=== PATIENT | male | born 1980 | race Caucasian/White ===

== ENCOUNTER 2020-10-20 21:56 | Emergency (ER) | payer SELFPAY ==
--- NOTE | ~2020-10-20 | XR_ITS ---
EXAMINATION: XR chest 1V portable EXAM DATE: 10/20/2020 22:57 INDICATION: Loss of consciousness. Confusion TECHNIQUE: Portable AP frontal chest x-ray was obtained. Comparison is made to prior examination from 01/06/2014. FINDINGS: The lungs are clear. There are no pleural effusions. The cardiomediastinal silhouette is within normal limits. There is no pneumothorax suspected. The bones and soft tissues are unremarkab le. IMPRESSION: No acute cardiopulmonary findings. Reviewed, dictated and finalized at location A.
--- NOTE | ~2020-10-20 | CT_ITS ---
EXAMINATION: CT brain wo con EXAM DATE: 10/20/2020 22:56 INDICATION: Loss of consciousness. Confusion. Passed out. TECHNIQUE: Spiral CT of the head was performed without contrast. Axial, coronal and sagittal images were reviewed. The dose-length product (DLP) for this examination was 756.67 mGy-cm. The exposure w as tailored according to patient size, and iterative reconstruction (ASIR) was used as additional dos e reduction technique. There is no prior study for comparison. FINDINGS: Bilateral lentiform nuclei lacunar infarctions. There is no acute intraparenchymal hemorrha ge. No evidence of intraparenchymal brain mass lesion. No evidence of acute infarction. There is n o mass effect or midline shift. The ventricles are normal in size. There are no extra-axial collect ions. There are no acute calvarial fractures. The orbits are unremarkable. Soft tissue is unremarka ble. The visualized sinuses and mastoid air cells are well aerated. IMPRESSION: 1. No acute intracranial findings. 2. 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 Reviewed, dictated and finalized at location A.
[2020-10-20 22:04] VITALS: BP 114/75; PULSE 123; RESP 20; TEMP 36.8; O2SAT 96
--- NOTE | 2020-10-20 22:23 | ECG_ITS ---
Measurements Intervals [place] Rate: 111 P: 42 UT: 124 QRS: 8 QRSD: 113 T: 13 QT: 287 QTc: 392 Interpretive Statements SINUS TACHYCARDIA INCOMPLETE RIGHT BUNDLE BRANCH BLOCK NONSPECIFIC T-WAVE ABNORMALITY- ANT/INF LEADS ABNORMAL ECG Electronically Signed On 10-21-2020 6:27:38 CDT by Andi Tobar D.O.
[2020-10-20] MEDS: SODIUM CHLORIDE 0.9% IV 1,000 ML 999 ML IV CONT (22:51)
[2020-10-20] MEDS: ONDANSETRON INJ 4 MG/2 ML VIAL IV PUSH (22:51)
[2020-10-20 23:16] LABS: Basophils Absolute Auto 0.05 K/mm3 (0.00-0.10); Basophils Percent Auto 0.4 % (0.0-1.0); Eosinophils Absolute Auto 0.08 K/mm3 (0.02-0.50); Eosinophils Percent Auto 0.6 % (1.0-6.0); Hematocrit 37.8 % (40.0-54.0); Immature Granulocyte Absolute 0.27 K/mm3 (0.00-0.00); Lymphocytes Absolute Auto 1.78 K/mm3 (1.10-4.50); Lymphocytes Percent Auto 13.4 % (18.0-42.0); Mean Corpuscular HGB Conc 31.7 g/dL (32.0-36.0); Mean Corpuscular Hemoglobin 26.6 pg (27.0-31.0); Mean Corpuscular Volume 83.8 fL (78.0-102.0); Mean Platelet Volume 9.8 fl (8.7-11.0); Monocytes Absolute Auto 0.65 K/mm3 (0.10-0.90); Monocytes Percent Auto 4.9 % (2.0-11.0); Neutrophils Absolute Auto 10.5 K/mm3 (1.7-7.2); Neutrophils Percent Auto 78.7 % (50.0-70.0); Platelet Count Result 414 K/mm3 (150-420); Red Blood Count 4.51 M/mm3 (4.70-6.10); Red Cell Distribution Width 14.4 % (11.6-14.4); White Blood Count 13.3 K/mm3 (4.8-10.8)
--- NOTE | 2020-10-20 23:21 | ED.OVERDOSE ---
HPI - Overdose General Chief Complaint: Overdose Stated Complaint: AMB Time Seen by Provider: 10/20/20 22:08 Source: patient, EMS and RN notes reviewed Mode of arrival: EMS Limitations: no limitations History of Present Illness HPI Narrative: pt was using Fentanyl and almost lost conciousness. he was resuscitated via Narcan and arrived in the ED in no acute distress. complaint: accidental overdose Onset (ago): hour(s) (1) Timing confirmed by: family member Intent: other (accidental) How Overdose Was Discovered: family/friend present at time Context: Accidental Overdose: wanted to get high Treatments Prior to Arrival: oxygen, narcan and IV fluids Related Data Home Medications Medication Instructions Recorded Confirmed No Home Medications 10/20/20 10/20/20 Allergies Allergy/AdvReac Type Severity Reaction Status Date / Time No Known Allergies Allergy Verified 10/20/20 22:13 Review of Systems Review of Systems: All systems reviewed & are unremarkable except as noted in HPI and below Constitutional: Constitutional: Reports as per HPI and Reports no additional constitutional complaints Eyes: Eyes: Reports as per HPI and Reports no additional eye complaints ENT: Reports system reviewed and no additional complaints, except as documented and Reports as per HPI Cardiovascular: Cardiovascular: Reports as per HPI and Reports no additional cardiovascular complaints Respiratory: Respiratory: Reports as per HPI and Reports no additional respiratory complaints Gastrointestinal: Gastrointestinal: Reports as per HPI and Reports no additional gastrointestinal complaints Genitourinary: Genitourinary: Reports no additional male genitourinary complaints and Reports as per HPI Musculoskeletal: Musculoskeletal: Reports no additional musculoskeletal complaints and Reports as per HPI Integumentary/Breasts: Skin/Breast: Reports system reviewed and no additional complaints, except as docu and Reports as per HPI Neurologic: Reports system reviewed and no additional complaints, except as documented and Reports as per HPI Psychiatric: Psychiatric: Reports no additional psychiatric complaints and Reports as per HPI Endocrine: Endocrine: Reports no additional endocrine complaints and Reports as per HPI Hematologic/Lymphatic: Hematologic/Lymphatic: Reports no additional hematologic/lymphatic complaints and Reports as per HPI Allergic/Immunologic: Allergic/Immunologic: Reports no additional allergic/immunologic complaints and Reports as per HPI [facility] Past Medical History Medical History Substance abuse or dependence Social History Social History Substance use type: opiates Gender identity (if verbalized by the patient): Male Exam Const: General: no acute distress and alert Orientation/consciousness: patient oriented x3 Limitations: no limitations HENMT: Head: normal to inspection Ears: external ears normal and TM's normal bilaterally General nose exam: Normal external nose present and Normal nares present Face and sinus: normal facial exam Mouth: Yes lip normal and Yes moist mucous membranes Teeth and gingiva: dentition normal Eyes: Conjunctivae: conjunctivae normal Pupils: Equal, round and reactive pupils present EOM: EOMs intact bilaterally Neck: Neck: normal visual inspection and no lymphadenopathy Chest: Chest palpation & inspection: normal inspection of the chest Resp: Effort & Inspection: normal respiratory effort Auscultation: clear to auscultation bilaterally Cardio: Rate: regular rate Rhythm: regular rhythm GI: GI Palp: Yes Soft to palpation (non-tender ) Percussion: Yes normal to percussion : General: Yes bladder normal to palpation and Yes no CVA tenderness Testes: Testes normal Back/Spine/Pelvis: Back: no CVA tenderness Skin: General skin exam: normal color Rashes: no ra
[2020-10-20 23:33] LABS: Acetaminophen < 2 ug/mL (10-30); Alanine Aminotransferase 33 U/L (16-63); Albumin Level 3.7 g/dL (3.4-5.0); Alkaline Phosphatase 131 U/L (46-116); Ammonia 12 umol/L (11-32); Anion Gap 15 mmol/L (8-16); Aspartate Amino Transferase 28 U/L (15-37); Bilirubin,Total 0.4 mg/dL (0.00-1.00); Blood Urea Nitrogen 20 mg/dL (7-18); Calcium 8.2 mg/dL (8.5-10.1); Carbon Dioxide 25 mmol/L (21-32); Chloride 104 mmol/L (98-108); Creatine Kinase 155 U/L (39-308); Estimated CRCL calculation 50 ml/min; Estimated Glomerular Filt Rate 49; Ethanol < 3 mg/dL (0-6); Glucose 173 mg/dL (70-99); Magnesium 2.5 mg/dL (1.8-2.4); Osmolality Calculated 304 mOsm/kg (285-295); Salicylate 0.8 mg/dL (2.8-20.0); Sodium 144 mmol/L (136-145)
[2020-10-20 23:38] LABS: Lactic Acid Reflex 4.9 mmol/L (0.4-2.0)
[2020-10-21 00:03] LABS: Add Urine Microscopic? YES; Appearance Urine Clear (Clear); Bilirubin Urine Negative (Negative); Blood Urine Negative (Negative); Color Urine Yellow (Yellow); Glucose Urine UA Trace (Negative); Ketones Urine Negative (Negative); Leukocyte Esterase Ur Negative LEU/UL (Negative); Nitrate Urine Negative (Negative); Protein Urine 2+ (Negative); Specific Grav Ur 1.025 (1.010-1.020); Urobilinogen Urine 0.2 mg/dL (0.2-1.0)
[2020-10-21 00:08] VITALS: BP 126/86; PULSE 104; RESP 20; O2SAT 97
[2020-10-21 00:08] LABS: Bacteria Urine None seen /hpf; Mucus Urine Few /lpf; RBC Urine 0-2 /hpf (0-2); Squamous Epithelial Cell Urine Rare /hpf (Few); WBC Urine 0-3 /hpf (0-3)
[2020-10-21 00:09] LABS: Amphetamine Screen Urine Negative (Negative); Barbiturate Screen Urine Negative (Negative); Benzodiazepines Screen Urine Negative (Negative); Cannabinoid Screen Urine Negative (Negative); Cocaine Screen Urine Negative (Negative); Methadone Screen Urine Negative (Negative); Opiate Screen Urine Negative (Negative); Phencyclidine Screen Urine Negative (Negative)
== END 2020-10-21 00:19 | disposition home or self-care (01) ==
PROVIDERS: Emergency Provider Emergency Medicine
DX: F19.10 Other psychoactive substance abuse, uncomplicated (principal)
CPT/HCPCS: 36415; 70450; 71045; 80053; 80307; 81001; 82140; 82550; 83605; 83735; 85025; 93005; 96361; 96374; 99283; 99284; J2405; J7030